=== PATIENT | male | born 1990 | race Two or more races ===

== ENCOUNTER 2019-04-24 09:40 | Emergency (ER) | payer SELFPAY ==
[~2019-04-24] VITALS: Ht 177.8 cm; Wt 73.0 kg
[2019-04-24] MEDS ORDERED: IBUPROFEN 600MG TABLET PO ONE (10:15)
[2019-04-24 10:25] VITALS: BP 121/61
== END 2019-04-24 10:40 | disposition home or self-care (01) ==
LOC: ER 09:40
DX: D17.1 Benign lipomatous neoplasm of skin and subcutaneous tissue of trunk (principal)
CPT/HCPCS: 99282